=== PATIENT | male | born 1965 | race Caucasian/White ===

== ENCOUNTER 2022-03-18 08:19 | Outpatient (CLI) | payer MEDICAID, SELFPAY ==
[2022-03-18 14:30] LABS: Chloride* 104 mmol/L (96-114)
[2022-03-18 14:31] LABS: Potassium* 4.7 mmol/L (3.6-5.1); Sodium* 138 mmol/L (135-149)
[2022-03-18 14:33] LABS: Cholesterol* 208 mg/dL (90-199); Creatinine* 0.7 mg/dL (0.5-1.5); Estimated Glomerular Filt Rate 109 ml/min
[2022-03-18 14:34] LABS: Blood Urea Nitrogen* 15 mg/dL (7-30); Calcium* 9.8 mg/dL (8.4-10.6); Carbon Dioxide* 26 mmol/L (20-32); Glucose* 117 mg/dL (60-115); HDL Cholesterol* 42 mg/dL (>=40); LDL Cholesterol Calculated 117 mg/dL (<100); Triglycerides* 247 mg/dL (40-149)
== END 2022-03-18 08:20 | disposition home or self-care (01) ==
PROVIDERS: PCP Family Medicine; Visit Provider Family Medicine
DX: E78.5 Hyperlipidemia, unspecified (principal); I10 Essential (primary) hypertension; E03.9 Hypothyroidism, unspecified; M10.9 Gout, unspecified
CPT/HCPCS: 80048; 80061; 84443

== ENCOUNTER 2024-07-22 14:25 | Outpatient (CLI) | payer BC, SELFPAY | END 2024-07-22 14:26 | disposition home or self-care (01) | PROVIDERS: PCP Family Medicine; Visit Provider Family Medicine | DX: I10 Essential (primary) hypertension (principal); E03.9 Hypothyroidism, unspecified; Z12.5 Encounter for screening for malignant neoplasm of prostate | CPT/HCPCS: 80048; 84443; G0103 ==

== ENCOUNTER 2025-01-20 14:45 | Outpatient (CLI) | payer BC, SELFPAY | END 2025-01-20 14:46 | disposition home or self-care (01) | PROVIDERS: PCP Family Medicine; Visit Provider Family Medicine | DX: E78.2 Mixed hyperlipidemia (principal); M25.50 Pain in unspecified joint; Z11.8 Encounter for screening for other infectious and parasitic diseases | CPT/HCPCS: 80061; 86038; 86140; 86200; 86431; 86618 ==